=== PATIENT | female | born 1960 | race African-American/Black ===

== ENCOUNTER 2018-09-11 01:16 | Emergency (ER) | payer OTHER ==
[~2018-09-11] VITALS: Ht 160 cm; Wt 74.8 kg
--- NOTE | ~2018-09-11 | EKG ---
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[id number] Requested By: Vee Ayala Order Number: [id number] MD: Trenton Arias Measurements Intervals [place] Rate: 67 P: 0 CT: 176 QRS: 32 QRSD: 87 T: 3 QT: 397 QTc: 419 Interpretive Statements Sinus rhythm Left ventricular hypertrophy Anterior Q waves, possibly due to LVH Compared to ECG 04/08/2014 01:04:[address] change in the ST and T-wave segments Electronically Signed On 09-11-2018 8:35:19 CDT by Trenton Arias [email or web address] <ELECTRONICALLY SIGNED> By: Trenton Arias MD, [facility] 09/11/18 [id number] 9 Trenton Arias MD, FAC /EPI
[~2018-09-11 01:16] MED LIST: ASPIRIN EC325 M1 PO; CELEXA40 MG PO; FLEXERIL PO; GLUCOPHAGE1000 MG PO; IBUPROFEN 800800 M1 PO; NEXIUM40 MG PO; PEPCID40 MG PO; PREDNISONE 20 M20 MG PO; TRAMADOL 50 MG50 MG PO; VISTARIL 25 MG25 M1 PO; ZOCOR40 MG PO
[2018-09-11 02:01] LABS: URINE BILIRUBIN NEGATIVE (Negative); URINE BLOOD NEGATIVE (Negative); URINE CLARITY CLEAR; URINE COLOR YELLOW; URINE GLUCOSE-RANDOM* NEGATIVE (Negative); URINE KETONES TRACE (Negative); URINE LEUKOCYTES-REFLEX NEGATIVE (Negative); URINE NITRITE-REFLEX NEGATIVE (Negative); URINE PROTEIN (DIPSTICK) NEGATIVE (Negative); URINE SPECIFIC GRAVITY >= 1.030 (1.005-1.035); URINE UROBILINOGEN 0.2 E.U./dl (0.2-1.0)
[2018-09-11 02:04] LABS: HEMOGLOBIN 9.2 gm/dL (12.0-15.0); MCH 28.6 pg (26.0-34.0); MCHC 33.9 g/dL (28.0-37.0); MCV 84.2 fL (80.0-100.0); RBC 3.21 mil/uL (4.20-5.00); RDW 14.3 % (10.5-14.5); WBC 8.4 thou/uL (4.0-11.0)
[2018-09-11 02:08] LABS: ANION GAP 9 mmol/L (7-16); BUN 12 mg/dL (7-18); CALCIUM 9.3 mg/dL (8.5-10.1); CHLORIDE 101 mmol/L (98-107); CO2 28 mmol/L (21-32); CREATININE 0.8 mg/dL (0.6-1.0); GLUCOSE 143 mg/dL (74-106); POTASSIUM 3.7 mmol/L (3.5-5.1); SODIUM 138 mmol/L (136-145)
[2018-09-11 02:16] LABS: ALBUMIN 3.6 g/dL (3.4-5.0); LIPASE 123 U/L (73-393); SGOT 16 U/L (15-37); SGPT 19 U/L (30-65); TOTAL BILIRUBIN 0.2 mg/dL (<0.1-1.0); TOTAL PROTEIN 7.4 g/dL (6.4-8.2); TROPONIN-I <0.06 ng/mL (<0.06)
[2018-09-11] MEDS ORDERED: PEPCID20 MG PO (03:04)
[2018-09-11] MEDS ORDERED: PROTONIX40 MG PO (03:12)
[2018-09-11 03:18] VITALS: BP 151/63
== END 2018-09-11 03:19 | disposition home or self-care (01) ==
LOC: ER 01:16
PROVIDERS: Student in an Organized Health Care Education/Training Program
DX: N28.1 Cyst of kidney, acquired (principal); E11.9 Type 2 diabetes mellitus without complications; Z90.710 Acquired absence of both cervix and uterus; Z90.10 Acquired absence of unspecified breast and nipple